=== PATIENT | female | born 1975 | race Caucasian/White ===

== ENCOUNTER 2024-06-16 22:08 | Emergency (ER) | payer OTHER, SELFPAY ==
[2024-06-16 22:10] VITALS: BMI 31.7
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
[2024-06-16] MEDS: TORADOL 15 MG IM (23:14)
[2024-06-16 23:30] VITALS: BP 122/74
[2024-06-17] MEDS: LIDOCAINE 4% PATCH 1 PATCH TOPICAL (00:01)
[2024-06-17 00:07] VITALS: BP 132/89
[2024-06-17] MEDS: PERCOCET 5/325 1 TABLET PO (00:19)
== END 2024-06-17 01:38 | disposition home or self-care (01) ==
LOC: EMR 22:08
PROVIDERS: EMERGENCY PHYSICIAN Student in an Organized Health Care Education/Training Program
DX: R07.81 Pleurodynia (principal); Z86.73 Personal history of transient ischemic attack (TIA), and cerebral infarction without residual deficits; Z87.81 Personal history of (healed) traumatic fracture
CPT/HCPCS: 96372; 99284; 71101